=== PATIENT | male | born 1970 | race African-American/Black ===

== ENCOUNTER 2024-12-16 08:23 | Emergency (ER) | payer MEDICAID ==
[~2024-12-16] VITALS: Ht 165.1 cm; Wt 109.0 kg
[2024-12-16 08:30] VITALS: BP 187/109; PULSE 92; TEMP 99; O2SAT 96
--- NOTE | 2024-12-16 09:25 | Physician Documentation ---
History of Present Illness ~ Chief Complaint: Knee Pain Stated Complaint: L KNEE PAIN Time Seen by MD: 09:14 [facility] 84-year-old male presents to the ED with a complaint of left chronic knee pain. States he used to play lots of contact sports does not believe he has any previous injury in has never had any MRIs done on the affected knee. However patient states that it is painful to ambulate denies that the areas hot to touch but reports increased pain with ambulation He says previously he had prednisone prescribed it did not seem to work for his symptoms. Day of Onset: Dec 16, 2024 Tetanus witin 5 years: No Medication Reconciliation Allergies: Coded Allergies: No Known Allergies (Unverified , 12/16/24) Review of Systems All Other Systems at this time: Reviewed and Negative ROS As stated above in the HPI, otherwise all systems are reviewed and negative. Physical Exam Vital Signs: Temperature: 99.0, Source: Temporal, Heart Rate: 92, Respiratory Rate: 16, BP: 187/109, Pulse Oximetry: 96, Weight: 109.000 Oxygen Flow Rate: 0 Physical Exam General: Alert, no apparent distress. Extremities: Normal range of motion, no deformity. Mild swelling. Positive Lizy's test with external rotation negative Rachna's drawer test Neurologic: Oriented x4. Reflexes intact Psychiatric: Normal mood and affect. Skin: Normal color, warm and dry. No edema, no ecchymosis. Progress Results/Orders Results/Orders Vital Signs 12/16/24 08:30 Temp 99.0 Pulse 92 Resp 16 B/P (MAP) 187/109 Pulse Ox 96 O2 Flow Rate 0 Medical Decision Making Findings This patient presents with suspected internal knee derangement which may be chronic in nature. However he has not had the appropriate imaging to confirm or deny this. Do suspect meniscal involvement. Treated him for pain and inflammation I am going to advise him to follow up in the outpatient setting Departure Disposition: HOME / SELF CARE / HOMELESS Impression: Primary Impression: Knee pain Condition: Stable Discharge Instructions: Acute Knee Pain, Adult Additional Instructions: As I instructed you I recommend following up in the outpatient setting to obtain an MRI of your left knee. This will tell your provider what damage if any is done. Also recommend trying physical therapy before any surgical interventions if that end up being recommended Referrals: NO PRIMARY CARE PROVIDER (PCP) Prescriptions Diclofenac Sodium (Voltaren Arthritis Pain) 1 % Gel..gram. 1 APPLIC TOP BID for pain for 10 Days, #30 GM Prov: CLEMENTE ARREGUIN LEAD ETL DEVELOPER 12/16/24 Education Educated: Patient Educated regarding: diagnosis Signature Scribe Signature: r Attestation: Scribed for Clemente Arreguin Wellness Nurse by Clemente Arreguin - THERESE . 12/16/24 09:25 CLEMENTE ARREGUIN NP Dec 16, 2024 09:25
[2024-12-16] MEDS ORDERED: DICL20GE TOP (09:26)
[2024-12-16 09:55] VITALS: RESP 16
[2024-12-16] MEDS: ketorolac trometh 15mg/ml vial 15 MG/ML ML IM ONE (09:55)
[2024-12-16] MEDS: ketorolac trometh 30MG/ML vial 30 MG/ML VIAL IM ONE (09:55)
== END 2024-12-16 09:50 | disposition home or self-care (01) ==
LOC: ER 08:24
DX: M25.562 Pain in left knee (principal)
CPT/HCPCS: 96372; 99284; J1885

== ENCOUNTER 2024-12-16 14:13 | Emergency (ER) | payer MEDICAID ==
[~2024-12-16] VITALS: Ht 165.1 cm; Wt 109.0 kg
[~2024-12-16 14:13] MED LIST: DICL20GE TOP
--- NOTE | 2024-12-16 15:04 | RADIOLOGY REPORT ---
DI KNEE, COMP 4 VW MIN, INDICATION: KNEE PAIN TECHNICAL DATA: Frontal , oblique and lateral views were obtained of the left knee. COMPARISON: None FINDINGS: No fracture is identified. Medial, lateral and patellofemoral compartment joint spaces are maintained . Alignment is anatomic. Soft tissues are within normal limits. No joint effusion is demonstrated. IMPRESSION: No acute fracture or dislocation of the left knee.
[2024-12-16 16:32] VITALS: TEMP 98.8
[2024-12-16] MEDS ORDERED: azithromycin 250mg tablet PO STA (17:00)
[2024-12-16] MEDS ORDERED: CefTRIAXone/D5W-Rocephin 1gm 50 ML IV STA (17:00)
--- NOTE | 2024-12-16 17:06 | Physician Documentation ---
History of Present Illness ~ Chief Complaint: Knee Pain Stated Complaint: REQUESTING MRI OF THE KNEE Time Seen by MD: 14:44 HPI Patient is seen today wanting MRI of his left knee. Patient states he has had pain in his left knee for about a month now and was even seen earlier this morning but states after he left today he was getting into his truck and felt and heard a pop in his left knee and was having more pain and came back to the ER today. Patient denies any chest pain or shortness of breath or abdominal pain or nausea, vomiting, diarrhea. Patient has no other concern or complaint at this time. Patient has already been given a Toradol shot today. Tetanus witin 5 years: No Medication Reconciliation Allergies: Coded Allergies: No Known Allergies (Unverified , 12/16/24) Scheduled Diclofenac Sodium (Voltaren Arthritis Pain), 1 APPLIC TOP BID Review of Systems Constitutional: Denies: chills, fever, weakness Eyes: Denies: pain, blurred vision ENT: Denies: ear pain, nose pain, throat pain, mouth pain Respiratory: Denies: cough, shortness of breath Cardiovascular: Denies: chest pain, palpitations Gastrointestinal: Denies: abdominal pain, nausea, vomiting Genitourinary: Denies: burning, dysuria Male Genitalia: Denies: penile discharge, testicular pain Neurological: Denies: headache, dizziness Musculoskeletal: Denies: pain, swelling Integumentary: Denies: rash, lesions Allergic/Immunologic: Denies: hives, itching Hematologic/Lymphatic: Denies: no symptoms reported Psychiatric: Denies: depression, anxiety Physical Exam Vital Signs: Temperature: 98.8, Source: Oral, Heart Rate: 71, Respiratory Rate: 16, BP: 167/116, Pulse Oximetry: 98, Weight: 109.000 Oxygen Flow Rate: 0 Physical Exam General: Awake and Alert, no acute distress. HEENT: Conjunctiva pink, Sclera clear, Mucus Membranes moist. Neck: Supple without masses and tenderness. Resp: Unlabored. Lungs clear to auscultation bilaterally. Heart: Regular Rate and rhythm, normal S1 and S2 without murmur, rub or gallop. Musculoskeletal: Patient on exam has significant decreased range of motion of knee flexion on the left side due to pain. Patient has tenderness to palpation along the lateral joint line of the left knee. Patient is neurovascularly in tact distally. Motor function is intact distally. Extremities: No cyanosis,clubbing or edema. Skin: Warm and Dry. Progress Results/Orders Results/Orders Vital Signs 12/16/24 12/16/24 14:14 16:32 Temp 98.8 98.8 Pulse 102 71 Resp 16 16 B/P (MAP) 145/88 167/116 (133) Pulse Ox 98 98 O2 Flow Rate 0 0 EKG/XRAY/CT/US/VASC/MRI Bone/Soft Tissue X-Ray (Ext.) : Additional Comment X-ray of left knee interpreted by myself today shows no sign of acute fracture, bones in anatomic alignment, no osteolytic or blastic lesions. DIAGNOSTIC RADIOLOGY Patient: FERNANDO ARCHIBALD Medical Record: [id number] [facility] 1970, Age: 54 Sex: Male Location: ER Patient Status: REG ER Service Date/Time: 12/16/24/ 1417 Ordering Physician: DELIA STEVENSON MD Exam: KNEE, COMP 4 VW MIN DI KNEE, COMP 4 VW MIN, INDICATION: KNEE PAIN TECHNICAL DATA: Frontal , oblique and lateral views were obtained of the left knee. COMPARISON: None FINDINGS: No fracture is identified. Medial, lateral and patellofemoral compartment joint spaces are maintained. Alignment is anatomic. Soft tissues are within normal limits. No joint effusion is demonstrated. IMPRESSION: No acute fracture or dislocation of the left knee. Electronically Signed by:BILLY GREENE MD Date & Time: 12/16/24 1502 Dictated by: BILLY GREENE MD Dictation date and time: 12/16/24 1435 Primary Care Provider: NO PRIMARY CARE PROVIDER cc: DELIA STEVENSON MD ~ Medical Decision Making Findings Patient is seen today wanting MRI of his left knee. Patient states he has had pain in his left knee for about a month now and was even seen earlier this morning but states after he left today he was getting into his truck and felt and heard a pop in his left knee and was having more pain and came back to the ER today. Patient denies any chest pain or shortness of breath or abdominal pain or nausea, vomiting, diarrhea. Patient has no other concern or complaint at this time. Patient has already been given a Toradol shot today. X-ray taken of left knee shows no sign of acute fracture and is unremarkable. Patient will be given crutches upon request. Patient will follow up with primary care for further eval and treatment and referral for MRI and instrumentation specialist consult. Patient will continue NSAIDs as needed and will advance activity level as tolerated. Return to ED with any worsening, concerning or changing symptoms. Departure Disposition: 01 HOME / SELF CARE / HOMELESS Impression: Primary Impression: Knee pain Qualified Codes: M25.562 - Pain in left knee Condition: Stable Discharge Instructions: Acute Knee Pain, Adult Additional Instructions: X-ray taken of left knee shows no sign of acute fracture and is unremarkable. Patient will be given crutches upon request. Patient will follow up with primary care for further eval and treatment and referral for MRI and instrumentation specialist consult. Patient will continue NSAIDs as needed and will advance activity level as tolerated. Return to ED with any worsening, concerning or changing symptoms. Referrals: NO PRIMARY CARE PROVIDER (PCP) Signature Scribe Signature: No scribe Attestation: No scribe SHAYNA BERRY Dec 16, 2024 17:06
[2024-12-16 17:23] VITALS: BP 167/102; PULSE 85; RESP 16; O2SAT 98
== END 2024-12-16 17:25 | disposition home or self-care (01) ==
LOC: ER 14:13
DX: M25.562 Pain in left knee (principal); Z79.899 Other long term (current) drug therapy
CPT/HCPCS: 73564; 99283

== ENCOUNTER 2025-02-04 10:33 | Outpatient (CLI) | payer MEDICAID ==
--- NOTE | 2025-02-04 12:43 | RADIOLOGY REPORT ---
CLINICAL INDICATION: LEFT KNEE PAIN TECHNIQUE: Multiplanar, multisequence MRI of the left knee was performed without contrast. Contrast: None. COMPARISON: DI KNEE COMP 4 VW MIN on DOS: 12/16/24 FINDINGS: Joint space and synovium: There is moderate knee joint effusion. There synovitis. Septated villarreal's c yst is present measuring 5.8 cm. Bones and articular cartilage: There is no evidence of acute fracture. There is mild bone marrow schuyler ma in the medial tibial plateau and the medial femoral condyle. The alignment is normal. There is severe chondral thinning in the medial and lateral patellar facets and patellar apex. No lateral com partment articular cartilage loss. Multifocal moderate grade articular cartilage loss is present in the posterior medial femoral condyle. The medial tibial plateau articular cartilage is intact. Menisci: There is a tear of the posterior root of the medial meniscus. Lateral meniscus is intact. Tendons and ligaments: The tendons in the posterior knee are intact. The extensor mechanism is inta ct. The anterior cruciate ligament is intact. The posterior cruciate ligament is intact. The m edial collateral ligament and the lateral collateral ligament stabilizing complex are intact. Muscles: Regional muscles are preserved in bulk and signal characteristics. Other: None. IMPRESSION: 1. Tear of the posterior root of the medial meniscus of the left knee. 2. Moderate suprapatellar joint effusion and synovitis. 3. Septated Villarreal's cyst measuring 5.8 cm. 4. Patellofemoral and medial femoral condyle articular cartilage loss. 5. Bone marrow edema in the medial femoral condyle and medial tibial plateau likely related to the me niscus tear.
== END 2025-02-04 23:59 | disposition home or self-care (01) ==
LOC: MRI02 10:33
PROVIDERS: ATTEND Family Medicine
DX: S83.242A Other tear of medial meniscus, current injury, left knee, initial encounter (principal); M25.462 Effusion, left knee; M71.22 Synovial cyst of popliteal space [Baker], left knee; M65.88 Other synovitis and tenosynovitis, other site; M25.562 Pain in left knee; R93.7 Abnormal findings on diagnostic imaging of other parts of musculoskeletal system; X58.XXXA Exposure to other specified factors, initial encounter; Y93.89 Activity, other specified; Y92.89 Other specified places as the place of occurrence of the external cause; Y99.8 Other external cause status
CPT/HCPCS: 73721

== ENCOUNTER 2025-06-07 21:10 | Emergency (ER) | payer MEDICAID ==
[~2025-06-07] VITALS: Ht 165.1 cm; Wt 104.1 kg
--- NOTE | 2025-06-07 21:16 | ELECTROCARDIOGRAPH REPORT ---
[facility] Test Date: 2025-06-07 Test Time: 21:15:20 Pat Name: FERNANDO ARCHIBALD Department: [facility]- Patient ID: [facility]-[id number] Room: Gender: M [employer]: : 1970 Requested By: MORGAN SONG Order Number: [id number] Reading MD: Dr. LINA Shanks Measurements Intervals [place] Rate: 89 P: 24 [place]: 141 QRS: -17 QRSD: 104 T: -1 QT: 319 QTc: 389 Interpretive Statements Sinus rhythm Atrial premature complexes Borderline left axis deviation Low voltage, precordial leads Borderline T abnormalities, inferior leads Minimal ST elevation, anterior leads Baseline wander in lead(s) V3 Electronically Signed On 06-09-2025 18:09:[address] LINA Shanks Please click the below link to view image of tracing.
[2025-06-07 21:48] LABS: MEAN PLATELET VOLUME 8.8 FL (7.4-10.4); RED CELL DISTRIBUTION WIDTH 13.5 % (11.5-14.5)
--- NOTE | 2025-06-07 21:55 | RADIOLOGY REPORT ---
CHEST RADIOGRAPH INDICATION: CP TECHNIQUE: Single frontal view of the chest was obtained. COMPARISON: None FINDINGS: No focal consolidation. No significant pleural effusion. No pneumothorax. Stable cardiomediastinal silhouette. IMPRESSION: No acute pulmonary process.
[2025-06-07 22:07] LABS: CREATININE 1.32 MG/DL (0.60-1.10); PRO BRAIN NATRIURETIC PEPTIDE < 30 PG/ML (0-125); TOTAL CARBON DIOXIDE 24.8 MMOL/L (24-32); eCRCL 56 ML/MIN; eGFR 69 ML/MIN
--- NOTE | 2025-06-07 22:20 | Physician Documentation ---
History of Present Illness ~ Chief Complaint: Chest Pain Stated Complaint: CHEST PAIN Time Seen by MD: 22:18 HPI Patient presents to the emergency room with sharp chest pain. He states that he had began experiencing that has when that has arguing with his that has si nce resolved. He reports history of pericarditis he states this feels similar. Last time he saw the cuff turner machine operator was a proximally two years ago in [place] in which she had a stress test which reportedly was negative. He has a established himself with a primary care locally. He does not have a cuff turner machine operator yet. Medication Reconciliation Allergies: Coded Allergies: No Known Allergies (Unverified , 12/16/24) Scheduled Diclofenac Sodium (Voltaren Arthritis Pain), 1 APPLIC TOP BID Review of Systems ROS All review of systems negative except as per HPI Physical Exam Vital Signs: Temperature: 98.3, Source: Oral, Heart Rate: 93, Respiratory Rate: 18, BP: 138/94, Pulse Oximetry: 98, Weight: 104.100 Oxygen Flow Rate: 0 Physical Exam General: Patient is awake, alert, oriented x4 in no acute distress Head: Normocephalic and atraumatic. Eyes: Conjunctival normal. EOMI. PERRL. ENT: Mucous membranes moist. Neck: Supple, trachea is midline. Chest: Clear to auscultation bilaterally without rales, rhonchi, or wheezes. There is no accessory muscle use or retractions. Cardiac: RRR without murmurs, gallops, or rubs. Abd: Soft, nondistended, nontender, with normoactive bowel sounds. No guarding, rebound, or rigidity. Progress Results/Orders Results/Orders Orders - FANTASMA SLATER MD Chest,Single View (06/07/25 21:46) Monitor (06/07/25 21:11) Saline Lock (06/07/25 21:11) Oxygen (06/07/25 21:11) Hs Troponin I W Calculations (06/07/25 23:11) Hs Troponin I W Calculations (06/08/25 00:11) Completed Orders - FANTASMA SLATER MD Chest,Single View (06/07/25 21:46) Cbc/Diff (06/07/25 21:11) BMP (06/07/25 21:11) PBNP (06/07/25 21:11) Electrocardiogram (06/07/25 21:11) Hs Troponin I W Calculations (06/07/25 21:11) Vital Signs 06/07/25 06/07/25 21:17 22:22 Temp 98.3 Pulse 93 Resp 18 B/P (MAP) 138/94 Pulse Ox 98 O2 Flow Rate 0 Laboratory Tests Test 06/07/25 21:19 White Blood Count 5.8 Red Blood Count 5.58 Hemoglobin 14.9 Hematocrit 44.5 Mean Corpuscular Volume 79.7 Mean Corpuscular Hemoglobin 26.7 L Mean Corpuscular Hemoglobin Concent 33.5 Red Cell Distribution Width 13.5 Platelet Count 194 Mean Platelet Volume 8.8 Neutrophils (%) (Auto) 56.1 Lymphocytes (%) (Auto) 29.1 Monocytes (%) (Auto) 11.2 Eosinophils (%) (Auto) 3.0 Basophils (%) (Auto) 0.6 Neutrophils # (Auto) 3.2 Lymphocytes # (Auto) 1.7 Monocytes # (Auto) 0.6 Eosinophils # (Auto) 0.2 Basophils # (Auto) 0.0 CBC Comment Sodium Level 137 Potassium Level 3.9 Chloride Level 104 Carbon Dioxide Level 24.8 Anion Gap 8 Blood Urea Nitrogen 14 Creatinine 1.32 H Estimated GFR/1.73 m2 69 BUN/Creatinine Ratio 10.6 Glucose Level 85 Calcium Level 8.5 Troponin I High Sensitivity 9 Pro-B-Type Natriuretic Peptide < 30 Albumin 3.7 Chemistry Comments EKG/XRAY/CT/US/VASC/MRI EKG : Additional Comment EKG interpreted by myself shows time of 2114, rate 89, sinus rhythm, left axis deviation, no ST changes, noted PAC Chest X-Ray : Additional Comments Exam: CHEST,SINGLE VIEW CHEST RADIOGRAPH INDICATION: CP TECHNIQUE: Single frontal view of the chest was obtained. COMPARISON: None FINDINGS: No focal consolidation. No significant pleural effusion. No pneumothorax. Stable cardiomediastinal silhouette. IMPRESSION: No acute pulmonary process. Medical Decision Making Additional information obtaine: N/A Findings Patient presents to the emergency room with atypical chest pain that has per HPI. Differentials include but are not limited to ACS, pulmonary embolism, aortic pathology, musculoskeletal pain, esophageal reflux, esophageal spasm therefore emergent labs and imaging indicated. Heart Score: 3 Differential Dx:Considerations: Include: angina, aortic dissection, chest wall pain, cholelithiasis, CHF, costochondritis, esophageal reflux/spasm, gastritis, herpes zoster, myocardial infarction, pericarditis, pleuritis, pancreatitis, pneumonia, pneumothorax, pulmonary embolus, other Departure Disposition: HOME / SELF CARE / HOMELESS Impression: Primary Impression: Chest pain Condition: Stable Discharge Instructions: Nonspecific Chest Pain, Adult Referrals: NO PRIMARY CARE PROVIDER (PCP) Signature Scribe Signature: No scribe Attestation: The note accurately reflects work and decisions made by me.Fantasma Slater MD 06/07/25 22:32 FANTASMA SLATER MD Jun 07, 2025 22:20
[2025-06-07 22:39] VITALS: BP 140/94; PULSE 92; RESP 15; TEMP 98.3; O2SAT 96
== END 2025-06-07 22:40 | disposition home or self-care (01) ==
LOC: ER 21:10
DX: R07.9 Chest pain, unspecified (principal); Z86.79 Personal history of other diseases of the circulatory system; Z79.899 Other long term (current) drug therapy
CPT/HCPCS: 36415; 71045; 80048; 83880; 84484; 85025; 93005; 99285